=== PATIENT | female | born 1995 | race Caucasian/White ===

== ENCOUNTER 2018-01-11 14:53 | Emergency (ER) | payer OTHER ==
[~2018-01-11] VITALS: Ht 170.2 cm; Wt 51.8 kg
[~2018-01-11 14:53] MED LIST: NOHOMEMEDS
[2018-01-11] MEDS ORDERED: MOTRIN600 MG PO (17:40)
[2018-01-11] MEDS ORDERED: BACLOFEN10 MG PO (17:40)
[2018-01-11 17:54] VITALS: BP 135/90
== END 2018-01-11 17:55 | disposition home or self-care (01) ==
LOC: EME 14:53
DX: S00.83XA Contusion of other part of head, initial encounter (principal); T14.8XXA Other injury of unspecified body region, initial encounter; M54.2 Cervicalgia; Y04.8XXA Assault by other bodily force, initial encounter; Y92.039 Unspecified place in apartment as the place of occurrence of the external cause; Y07.9 Unspecified perpetrator of maltreatment and neglect; F17.200 Nicotine dependence, unspecified, uncomplicated
CPT/HCPCS: 70150; 72040; 99281; 99284; J1885